=== PATIENT | male | born 1970 | race Native Hawaiian/Other Pacific Islander ===

== ENCOUNTER 2022-09-11 08:59 | Inpatient (IN) | payer OTHER, SELFPAY ==
[2022-09-11] VITALS (45 sets, daily range): BP systolic 144–181; BP diastolic 96–119; PULSE 66–93; RESP 12–21; TEMP 37.2–37.4; O2SAT 92–100; BMI 27.3
--- NOTE | ~2022-09-11 | XR_ITS ---
EXAMINATION: XR chest 2V 09/11/2022 10:05 INDICATION: Weakness and confusion PROCEDURE: 2 view chest COMPARISON: No prior studies for comparison. FINDINGS: The lungs are clear. The cardiomediastinal silhouette is within normal limits. There are no pleural effusions. There is no pneumothorax suspected. IMPRESSION: 1: NO ACUTE CARDIOPULMONARY DISEASE. Reviewed, dictated and finalized at location []
--- NOTE | ~2022-09-11 | MR_ITS ---
MRI of the brain Clinical History: Altered mental status Technique: Axial and sagittal T1-weighted images were acquired. These were followed by axial T2-weigh jamie, diffusion weighted, gradient, and FLAIR images. Thin cut coronal T1-weighted and T2-weighted prem ges and thin cut axial T1-weighted images were acquired through the internal auditory canals. Followi ng intravenous administration of 19 cc MultiHance gadolinium, T1-weighted fat-sat imaging was perform ed through the brain in the axial and coronal planes. Thin cut coronal and axial T1-weighted postcont rast imaging was also performed through the internal auditory canals. Findings: No abnormal signal seen in the brain parenchyma. No acute infarct, intracranial hemorrhage, or mass lesion. Ventricles and subarachnoid spaces are unremarkable. Orbits are unremarkable. Paranasal sinuses and m astoid air cells are clear. Major intracranial flow voids are intact. Sagittal midline structures are intact. No abnormal postcontrast enhancement identified. No abnormal mass lesion seen at the coding compliance auditor y canals or cerebellopontine angle regions. IMPRESSION: No significant abnormality seen. Reviewed, dictated and finalized at location .
--- NOTE | ~2022-09-11 | XR_ITS ---
EXAMINATION: XR lumbar puncture diagnostic DATE: 09/12/2022 14:13 INDICATION: Altered mental status. Concern for neural sarcoidosis. TECHNIQUE: The procedure including the risks and benefits was discussed with the patient. Risks discu ssed included spinal headache, cerebrospinal fluid leak, bleeding, and infection. The patient underst ood the risks and agreed to proceed. A timeout was performed to verify the patient's name, date of , and procedure to be performed. The skin overlying the L4-L5 level was prepped and draped in usual sterile fashion. Subcutaneous 1% lidocaine was used for local anesthesia. A 22 gauge spinal n eedle was advanced under fluoroscopic guidance. The needle was removed and the entry site was cleaned and dressed. There were no immediate complications. A total of 1 fluoroscopic image(s) were obtaine d. The amount of fluoroscopy time used during this procedure was 0.1 minutes. Total DAP was 1.164 mGy cm^2. There were no immediate complications. FINDINGS: Real-time fluoroscopy demonstrates the needle at the L4-L5 level. Opening pressure was 11 c m water. (Normal range is variably defined as 6-20 cm water and up to 25 cm water in obese patients. Pressure >25 cm water is one of the modified Dandy criteria for idiopathic intracranial hypertension) . 12 mL of clear, colorless fluid was collected in 4 tubes. IMPRESSION: 1. Successful fluoro-guided lumbar puncture with normal opening pressure of 11 cm water. Reviewed, dictated and finalized at location A.
--- NOTE | ~2022-09-11 | CT_ITS ---
EXAMINATION: CT BRAIN W/O DATE: 09/11/2022 10:06 INDICATION: Altered mental status TECHNIQUE: Computed tomography (CT) of the head was performed without intravenous contrast. The dose- length product was 681.00 mGy-cm. Automated exposure control and iterative reconstruction technique w ere employed. COMPARISON: No prior studies for comparison. FINDINGS: Normal brain parenchymal volume for age. Normal malone-white differentiation. No acute intrac ranial hemorrhage, infarction, mass or mass effect. No ventriculomegaly or midline shift. Midline sagittal images demonstrate a normal corpus callosum, c raniovertebral junction and sella turcica. Basilar cisterns are patent. Paranasal sinuses and mastoids are pneumatized. No depressed skull fractures. IMPRESSION: 1. No acute intracranial abnormality. Reviewed, dictated and finalized at location []
--- NOTE | 2022-09-11 09:39 | ECG_ITS ---
Measurements Intervals [place] Rate: 73 P: 15 [place]: 121 QRS: 16 QRSD: 88 T: 41 QT: 352 QTc: 389 Interpretive Statements SINUS RHYTHM NORMAL ECG NO PREVIOUS ECG AVAILABLE FOR COMPARISON Electronically Signed On 09-11-2022 15:51:17 CDT by Scotty Sanchez M.D.
[2022-09-11 09:58] LABS: Appearance Urine Clear (Clear); Bilirubin Urine Negative (Negative); Blood Urine Negative (Negative); Color Urine Yellow (Yellow); Glucose Urine UA Negative (Negative); Ketones Urine Negative (Negative); Leukocyte Esterase Ur Negative LEU/UL (Negative); Nitrate Urine Negative (Negative); Protein Urine Negative (Negative); Specific Grav Ur 1.015 (1.001-1.035)
[2022-09-11 10:14] LABS: Amphetamine Screen Urine Negative (Negative); Barbiturate Screen Urine Negative (Negative); Benzodiazepines Screen Urine Negative (Negative); Cannabinoid Screen Urine Positive (Negative); Cocaine Screen Urine Negative (Negative); Methadone Screen Urine Negative (Negative); Opiate Screen Urine Negative (Negative); Phencyclidine Screen Urine Negative (Negative)
[2022-09-11 10:26] LABS: Add Urine Microscopic? NO
[2022-09-11 10:30] LABS: Basophils Percent Auto 0.3 % (0.2-1.2); Eosinophils Percent Auto 0.2 % (0-4.4); Hematocrit 48.8 % (42.0-52.0); Hemoglobin 15.1 g/dL (14.0-18.0); Immature Granulocyte Absolute 0.21 K/mm3 (0.00-0.031); Immature Granulocyte Percent A 2.1 % (0-0.5); Lymphocytes Absolute Auto 1.54 K/mm3 (0.9-3.2); Lymphocytes Percent Auto 15.7 % (18.3-44.2); Mean Corpuscular HGB Conc 30.9 g/dl (32-36); Mean Corpuscular Hemoglobin 24.6 pg (26-34); Mean Corpuscular Volume 79.6 fl (80-100); Mean Platelet Volume 8.7 fl (7.4-10.4); Monocytes Absolute Auto 0.7 K/mm3 (0.1-0.6); Monocytes Percent Auto 6.7 % (2.6-8.5); Neutrophils Absolute Auto 7.4 K/mm3 (1.3-6.7); Platelet Count Result 266 k/mm3 (150-375); Red Blood Count 6.13 M/mm3 (4.6-6.20); Red Cell Distribution Width 21.6 % (11.5-14.5); White Blood Count 9.8 K/mm3 (4.5-10.0)
[2022-09-11 10:38] LABS: Ammonia < 9 umol/L (9-30); Ethanol < 10 mg/dL (<10)
[2022-09-11 10:38] LABS: Lactic Acid Reflex 1.7 mmol/L (0.7-2.0)
[2022-09-11 10:39] LABS: Alanine Aminotransferase 50 U/L (6-50); Albumin Level 4.2 g/dL (3.5-5.1); Alkaline Phosphatase 44 U/L (38-126); Anion Gap 6 mmol/L (8-16); Aspartate Amino Transferase 28 U/L (17-59); Bilirubin,Total 0.7 mg/dL (0.2-1.3); Blood Urea Nitrogen 23 mg/dL (9-20); Calcium 8.7 mg/dL (8.4-10.2); Carbon Dioxide 28 mmol/L (22-30); Chloride 106 mmol/L (98-107); Estimated CRCL calculation 78 ml/min; Estimated Glomerular Filt Rate > 60; Glucose 110 mg/dL (65-110); Potassium 3.7 mmol/L (3.4-5.0); Sodium 140 mmol/L (137-145)
[2022-09-11 10:43] LABS: INR 0.9; Prothrombin Time 12.8 Seconds (11.1-14.7)
[2022-09-11 10:44] LABS: Partial Thromboplastin Time 24.7 SECONDS (22.3-36.8)
--- NOTE | 2022-09-11 14:04 | ED.GENADULT ---
HPI - General Adult General Chief complaint: Altered Mental Status Stated complaint: ?AMS Time Seen by Provider: 09/11/22 09:22 History of Present Illness HPI narrative: Patient is a 52-year-old male who presents ER with concerns for altered mental status. Apparent leg patient was taken to [facility] early in the morning because he was altered and police were concerned that he was driving under the influence of alcohol. Patient was apparently discharged from [place] after evaluation. He was found again wandering near roadway and again confused. The only possessions patient has on him are a hotel room access card, a broken rod hanger, and the remote control. He is unable to tell me what hotel he was staying at. He does report that he is from [facility] but was down here to see his girlfriend who lives in [place]. He denies any knee injury or intoxication. He is alert and oriented to self and year and month. He can give no detailed history of what has occurred this evening. He is unsure why he is also in the possession of a piece of paper with the [place] [employer] phone number. Related Data Allergies Allergy/AdvReac Type Severity Reaction Status Date / Time No Known Allergies Allergy Verified 09/11/22 09:05 Review of Systems Review of Systems: ROS unobtainable: Yes unobtainable due to mental status PMFSH Past Medical History Medical History (Updated 09/11/22 @ 15:25 by Raj Alfaro MD) Kauffman's palsy Sarcoidosis Surgical History Surgical History (Updated 09/11/22 @ 15:25 by Raj Alfaro MD) History of eyelid surgery Exam Narrative: GENERAL: Well-appearing, well-nourished, and in no acute distress. HEAD: Normocephalic, atraumatic. ENT: Mucous membranes moist. CHEST: Clear to auscultation. No respiratory distress. HEART: Regular rate and rhythm. Normal peripheral pulses. ABDOMEN: Soft, nontender, nondistended. EXTREMITIES: Normal range of motion. No edema. SKIN: Warm, dry, no rash. NEURO: Alert and oriented x2. PSYCH: Normal mood and affect. Course Course Emergency Course: Patient provided phone number to his own cell phone that ended up contacting his girlfriend. She is, up to the ER. She reports that patient has had progressive memory impairment over the last 2 months. He was seeing a bread packer related to ptosis in his left eye who had begun to refer him to neurology and for an MRI but he has not been able to complete any of the imaging. Patient has recently been diagnosed with sarcoidosis that is affecting his vision. It is my suspicion that patient has progressive dementia and that is why he has been altered and lost recently. Apparently he has a child who is 8 years old but no other family who could act as a POA. He is adopted and has no biological relatives that are known. He does have a adoptive brother who is currently going through divorce that the girlfriend does not think would be able to act as a surrogate decision-maker. Patient has been accepted by hospitalist service. We will have neurology consulted. Vital Signs Vital signs: Vital Signs Temperature 98.9 F 09/11/22 08:57 Pulse Rate 87 09/11/22 08:57 Respiratory Rate 20 09/11/22 08:57 Blood Pressure 163/97 H 09/11/22 08:57 Pulse Oximetry 97 09/11/22 08:57 Oxygen Delivery Room Air 09/11/22 08:57 Temperature 99.4 F 09/11/22 15:57 Pulse Rate 66 09/11/22 16:32 Respiratory Rate 18 09/11/22 16:32 Blood Pressure 150/99 H 09/11/22 16:32 Pulse Oximetry 98 09/11/22 16:32 Oxygen Delivery Room Air 09/11/22 08:57 Medical Decision Making Vital Signs Vital Signs: Vital Signs Temperature 98.9 F 09/11/22 08:57 Pulse Rate 87 09/11/22 08:57 Respiratory Rate 20 09/11/22 08:57 Blood Pressure 163/97 H 09/11/22 08:57 Pulse Oximetry 97 09/11/22 08:57 Oxygen Delivery Room Air 09/11/22 08:57 Temperature 99.4 F 09/11/22 15:5
--- NOTE | 2022-09-11 17:48 | ADMGEN ---
This patient, Miguel Mari, was admitted to 3 [facility] Surg Room 305-01. Patient/family oriented to hospital policies and general routines including ID bracelet, bed and alarms, visiting hours, pain management, procedures, bathroom and other care routines, personal items, smoking policy, room service/diet, and visiting hours. Information on how to activate the Rapid Response Team has been discussed. Patient/Family are encouraged to report perceived risks to care and to ask questions if they do not understand what they are told or what they should do. Report from Tracy in ER.
--- NOTE | 2022-09-11 20:36 | PM.IMHP ---
H&P: HPI History of Present Illness Date/Time: 09/11/22 20:36 Chief Complaint: Altered mental status Narrative: This is a 52-year-old male patient who was taken to [facility] earlier this morning and was found to be altered and there was some concern that the patient may have been under the influence. Patient was discharged from the hospital after being evaluated. The patient was found wandering near the roadway and again confused. The patient had a hotel he a broken back hanger and a remote control. The patient is from [facility] and reports that he is here to visit his girlfriend. However his girlfriend lives in [facility]. I spoke with his girlfriend and she stated that the patient is very confused. The patient stated that his girlfriend and his child were with him today however the girlfriend tells me she and the patient's child were not with him today. Patient is unsure about the events that occurred today. The patient's toxicology screen was only positive for cannabis. The patient denies using any other illicit drugs. Head CT was read as no acute intracranial abnormality. Chest x-ray was read as no acute cardiopulmonary disease. The patient is being admitted to observation status on the date of service of 09/11/2022. Review of Systems Review of Systems: All systems reviewed & are unremarkable except as noted in HPI and below Constitutional: Constitutional: Reports as per HPI and Reports no additional constitutional complaints Eyes: Eyes: Reports as per HPI and Reports no additional eye complaints ENT: Reports system reviewed and no additional complaints, except as documented and Reports Normal hearing present Cardiovascular: Cardiovascular: Reports no additional cardiovascular complaints Respiratory: Respiratory: Reports no additional respiratory complaints and Reports no additional respiratory complaints Gastrointestinal: Gastrointestinal: Reports as per HPI and Reports no additional gastrointestinal complaints Musculoskeletal: Musculoskeletal: Reports no additional musculoskeletal complaints Integumentary/Breasts: Skin/Breast: Reports system reviewed and no additional complaints, except as docu and Reports as per HPI Neurologic: Reports system reviewed and no additional complaints, except as documented, Reports as per HPI and Reports Normal hearing present Psychiatric: Psychiatric: Reports no additional psychiatric complaints and Reports as per HPI Endocrine: Endocrine: Reports no additional endocrine complaints Hematologic/Lymphatic: Hematologic/Lymphatic: Reports no additional hematologic/lymphatic complaints Allergic/Immunologic: Allergic/Immunologic: Reports no additional allergic/immunologic complaints PMFSH Past Medical History Medical History (Updated 09/12/22 @ 00:25 by Areli Arreola NP) Kauffman's palsy Hypertension Sarcoidosis Surgical History Surgical History History of eyelid surgery Family History Family History (Updated 09/12/22 @ 00:18 by Areli Arreola NP) Unknown No problems noted. 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 The patient has 2 children. The patient is and has a significant other. Code status full code Smoking status: Never smoker Alcohol intake: unknown Substance use: current Substance use type: marijuana Spiritual care concerns: No Meds Home Medications and Allergies Home Medications Medication Instructions Recorded Confirmed Type albuterol sulfate 90 mcg/actuation 1 puff inhalation Q4H PRN sob 09/11/22 09/11/22 History aerosol inhaler budesonide-formoterol HFA 80 2 puff inhalation BID 09/11/22 09/11/22 History mcg-4.5 mcg/actuation aerosol inhaler (Symbicort) dexamethasone 2 mg tablet 2 mg PO
[2022-09-12] VITALS (11 sets, daily range): BP systolic 135–158; BP diastolic 91–108; PULSE 80–107; RESP 16–22; TEMP 36.4–37.3; O2SAT 96–99; BMI 27.3
--- NOTE | 2022-09-12 | ECHO_ITS ---
Patient Info Name: Miguel Mari Age: 52 years : 1970 Gender: Male Ht: 72 in Wt: 201 lbs BSA: 2.17 m2 HR: 87 bpm BP: 155 / 101 mmHg Heart Rhythm: Sinus Rhythm Technical Quality: Good Exam Date: 09/12/2022 9:08 AM Exam Location: [facility] Pulmonary Patient Status: Outpatient Admit Date: 09/11/2022 Staff Ordering Physician: Areli Arreola NP Air Compressor Mechanic: Zelda Shah RDCS Attending Provider: Shaye Pickens DO Referring Physician: Elba STALLINGS; Exam Type: CA echo doppler color flow Study Info Indications - confusion Complete two-dimensional, color flow and Doppler transthoracic echocardiogram is performed. Summary 1. Complete two-dimensional, color flow and Doppler transthoracic echocardiogram is performed. 2. Left ventricular chamber dimension is normal. 3. Left ventricular systolic function is hyperdynamic, estimated at >70%. 4. There is mildly increased left ventricular wall thickness. 5. The left ventricular diastolic function is grade I diastolic dysfunction. 6. Right ventricular systolic function is normal. 7. There is trace mitral valve regurgitation. 8. There is trace tricuspid valve regurgitation. 9. There is trace pulmonic regurgitation. Left Ventricle Left ventricular chamber dimension is normal. Left ventricular systolic function is hyperdynamic, estimated at >70%. There is mildly increased left ventricular wall thickness. The left ventricular diastolic function is grade I diastolic dysfunction. Right Ventricle Right ventricular chamber dimension is normal. Right ventricular systolic function is normal. Left Atria Left atrial chamber dimension is normal. Right Atria Right atrial chamber dimension is normal. Atrial Septum Intact interatrial septum visualized by color flow imaging. Aortic Valve The aortic valve is trileaflet. There is mild aortic valve sclerosis. There is no aortic valve stenosis. There is no aortic valve regurgitation. Pulmonic Valve The pulmonic valve is not well visualized. There is trace pulmonic regurgitation. Mitral Valve There is no mitral valve stenosis. There is trace mitral valve regurgitation. Tricuspid Valve There is trace tricuspid valve regurgitation. Pericardium/Pleural The pericardium appears epicardial fat pad. There is trivial pericardial effusion. Inferior Vena Cava Normal inferior vena cava with >50% collapse upon inspiration consistent with normal right atrial pressure, 3 mmHg. Aorta The aortic root size at the sinus of Valsalva is normal. Left Ventricular Outflow Tract Name Value Normal LVOT Doppler LVOT Peak Gradient 5 mmHg LVOT Mean Gradient 2 mmHg LVOT VTI 20 cm LVOT VTI/AV VTI Ratio 0.8 Pulmonic Valve Name Value Normal RVOT Doppler RVOT Peak Gradient 3 mmHg PV Doppler PV Peak Gradient 5 mmHg Mitral Valve -----
[2022-09-12 06:17] LABS: Basophils Absolute Auto 0.1 K/mm3 (0.0-0.1); Basophils Percent Auto 0.7 % (0.2-1.2); Eosinophils Percent Auto 0.5 % (0-4.4); Hematocrit 51.4 % (42.0-52.0); Hemoglobin 15.9 g/dL (14.0-18.0); Immature Granulocyte Absolute 0.19 K/mm3 (0.00-0.031); Immature Granulocyte Percent A 2.6 % (0-0.5); Lymphocytes Absolute Auto 1.29 K/mm3 (0.9-3.2); Lymphocytes Percent Auto 17.6 % (18.3-44.2); Mean Corpuscular HGB Conc 30.9 g/dl (32-36); Mean Corpuscular Hemoglobin 24.8 pg (26-34); Mean Corpuscular Volume 80.2 fl (80-100); Mean Platelet Volume 8.5 fl (7.4-10.4); Monocytes Absolute Auto 0.5 K/mm3 (0.1-0.6); Monocytes Percent Auto 6.7 % (2.6-8.5); Neutrophils Absolute Auto 5.3 K/mm3 (1.3-6.7); Neutrophils Percent Auto 71.9 % (45.5-73.1); Platelet Count Result 232 k/mm3 (150-375); Red Blood Count 6.41 M/mm3 (4.6-6.20); Red Cell Distribution Width 21.8 % (11.5-14.5); White Blood Count 7.3 K/mm3 (4.5-10.0)
[2022-09-12 06:32] LABS: Alanine Aminotransferase 50 U/L (6-50); Albumin Level 4.1 g/dL (3.5-5.1); Alkaline Phosphatase 51 U/L (38-126); Anion Gap 7 mmol/L (8-16); Aspartate Amino Transferase 25 U/L (17-59); Blood Urea Nitrogen 19 mg/dL (9-20); Calcium 8.9 mg/dL (8.4-10.2); Carbon Dioxide 30 mmol/L (22-30); Chloride 102 mmol/L (98-107); Estimated CRCL calculation 72 ml/min; Estimated Glomerular Filt Rate > 60; Glucose 98 mg/dL (65-110); Magnesium 2.5 mg/dL (1.6-2.3); Potassium 3.7 mmol/L (3.4-5.0); Sodium 139 mmol/L (137-145)
--- NOTE | 2022-09-12 09:12 | WPDNEURCNPN ---
Assessment and Plan Assessment and plan (1) Altered mental status: Code(s): R41.82 - Altered mental status, unspecified Status: Acute (2) Sarcoidosis: Code(s): D86.9 - Sarcoidosis, unspecified Status: Acute (3) Steroid long-term use: Status: Acute (4) Hypertension: Code(s): I10 - Essential (primary) hypertension Status: Acute Plan Miguel Mari is a 52 year old male with a history of Kauffman's palsy and sarcoidosis presenting due to altered mental status. Concern is high for possible neurosarcoidosis. MRI brain with and without contrast was unrevealing. Will need CSF analysis for further evaluation. - Lumbar puncture with CSF studies including viral studes, CSF OMNICA, and RT QUIC - Once LP is done, will treat empirically with high dose steroids -- 500mg BID Solumedrol x 3 days, followed by 1mg/kg/day prednisone for 2-4 weeks, depending on response at that time - Will continue to monitor mental status Consult date: 09/12/22 Reason for consult: Altered mental status HPI: Miguel Mari is a 52 year old male with a history of Kauffman's palsy and sarcoidosis presenting due to altered mental status. Patient was initially admitted to [facility] just prior to admission to [place]. At that time there was concern that patient may have been under the influence. He was discharged but found wandering near the highway confused. His only belongings were a remote control and broken spinning frame changer. He was reportedly staying at a hotel but it is unclear which one. Patient reported that he was visiting his girlfriend in [facility]. Per girlfriend, patient has had progressive decline in his mental status for the past two months. He was taken to [place] ED where he was alert and oriented to self, year, and month. His CT head was negative for acute abnormalities. UDS was positive for cannabinoids. Alcohol level was negative. Patient denied any other illicit drugs. Unclear where patient was diagnosed with sarcoidosis as there is no additional information in his chart other than the current admission. Patient's brothers (biological coursins) and girlfriend at [facility]. His girlfriend reports that he has been having some forgetfulness that started about 6 months ago. Over the past two months, things have considerably worsened. He was only recently diagnosed with sarcoidosis by a Rooter Operator. He had not had any neuroimaging done yet. 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 He is not around any livestock or cattle. They do not notice any abnormal jerking movement such as myoclonus. He has a history of R Kauffman's palsy with reconstructive surgery on the R eyelid. Review of Systems Constitutional: Constitutional: Denies chills, Denies fever(s) and Reports weight loss Eyes: Eyes: Denies diplopia and Denies loss of vision ENT: Denies dizziness, Denies hearing loss and Denies tinnitus Cardiovascular: Cardiovascular: Denies chest pain, Denies syncope and Denies dyspnea Respiratory: Respiratory: Denies cough, Denies dyspnea and Denies wheezing Gastrointestinal: Gastrointestinal: Denies abdominal pain, Denies change in bowel habits and Denies vomiting Genitourinary: Genitourinary: Denies urinary incontinence Musculoskeletal: Musculoskeletal: Reports arthralgias and Denies joint swelling Integumentary/Breasts: Skin/Breast: Denies new lesions and Denies rash Neurologic: Reports as per HPI, Reports confusion, Denies dizziness, Denies syncope and Denies loss of vision Psychiatric: Psychiatric: Denies anxiety, Reports confusion and Denies depression Endocrine: Endocrine: Denies cold intolerance and Denies heat intolerance Hematologic/Lymphatic: Hematologic/Lymphatic: Denies easy bleeding and Denies easy bruising Allergic/Immunologic: Allergic/Immunologic: Denies no additional aller
[2022-09-12] MEDS: DEXAMETHASONE 2 MG TABLET PO (10:13)
[2022-09-12] MEDS: lisinopriL 10 MG TABLET PO (10:13)
[2022-09-12 14:42] LABS: Appearance CSF Clear (Clear); CSF source CSF; Color CSF Colorless (Colorless)
[2022-09-12 14:43] LABS: Lymphocytes CSF 47 % (40-80); Monocytes CSF 53 % (15-45)
[2022-09-12 14:45] LABS: Nucleated Cell CSF < 3 /uL (0-5); Red Blood Cell CSF < 2000 (0-2)
--- NOTE | 2022-09-12 15:07 | WPDPN ---
Progress Note: A&P Assessment and Plan (1) Altered mental status: Code(s): R41.82 - Altered mental status, unspecified Status: Acute Assessment and Plan: Head CT was read as 1. No acute intracranial abnormality. An echo has been ordered Neurology has been consult MRI of the brain has been ordered 09/12/2022 interval history: Patient with history of sarcoidosis presented with confusion CT scan of the head and MRI of the brain are negative for any acute injury, patient was seen by Neurology and suspect the patient may have neuro sarcoidosis, LP was done and pending, neurologist will start on high-dose steroid and will monitor, patient states is feeling little better compared to when he arrived, denies any fevers will continue to monitor. (2) Hypertension: Code(s): I10 - Essential (primary) hypertension Status: Acute Assessment and Plan: Continue lisinopril (3) Steroid long-term use: Status: Acute Assessment and Plan: Unsure if this is due to the sarcoid Subjective Date/time seen: 09/12/22 15:07 Interval history: Chief Complaint: Altered mental status HPINarrative: This is a 52-year-old male patient who was taken to [facility] earlier this morning and was found to be altered and there was some concern that the patient may have been under the influence.? Patient was discharged from the hospital after being evaluated.? The patient was found wandering near the roadway and again confused.? The patient had a hotel he a broken mold insert changer and a remote control.? The patient is from [facility] and reports that he is here to visit his girlfriend.? However his girlfriend lives in [facility].? I spoke with his girlfriend and she stated that the patient is very confused.? The patient stated that his girlfriend and his child were with him today however the girlfriend tells me she and the patient's child were not with him today.? Patient is unsure about the events that occurred today.? The patient's toxicology screen was only positive for cannabis.? The patient denies using any other illicit drugs.? Head CT was read as no acute intracranial abnormality.? Chest x-ray was read as no acute cardiopulmonary disease.? 09/12/2022 interval history: Patient with history of sarcoidosis presented with confusion CT scan of the head and MRI of the brain are negative for any acute injury, patient was seen by Neurology and suspect the patient may have neuro sarcoidosis, LP was done and pending, neurologist will start on high-dose steroid and will monitor, patient states is feeling little better compared to when he arrived, denies any fevers will continue to monitor. Review of Systems Review of Systems: All systems reviewed & are unremarkable except as noted in HPI and below Exam Narrative: Patient is comfortable, NAD HEENT: eyes are clear and none icteric LUNGS: Normal respiratory efforts ABD: Not distended Lower extremities: no edema SKIN: nonjaundiced Neuro: grossly intact. Objective Data Vital Signs Vital Signs: Vital Signs - 24 hr 09/11/22 15:15 09/11/22 15:30 09/11/22 15:57 Temperature 99.4 F Pulse Rate 83 83 78 Respiratory Rate 16 Blood Pressure 173/103 H Pulse Oximetry 100 98 Oxygen Delivery 09/11/22 16:22 09/11/22 16:32 09/11/22 17:41 Temperature 99.0 F Pulse Rate 77 66 81 Respiratory Rate 18 18 18 Blood Pressure 166/104 H 150/99 H 151/100 H Pulse Oximetry 97 98 98 Oxygen Delivery 09/11/22 18:30 09/11/22 20:00 09/11/22 22:00 Temperature 99.4 F Pulse Rate 81 86 Respiratory Rate 18 18 Blood Pressure 145/96 H 160/97 H Pulse Oximetry 98 100 Oxygen Delivery Room Air 09/11/22 20:00 09/12/22 00:00 09/12/22 04:00 Temperature Pulse Rate 73 100 81 Respiratory Rate Blood Pressure Pulse Oximetry Oxygen Delivery 09/12/22 06:00 09/12/22 08:00 09/12/22 09:54 Temperature 97.6 F Pulse
[2022-09-12 15:10] LABS: Glucose CSF 53 mg/dL (40-70); Total Protein CSF 78 mg/dL (12-60)
[2022-09-12] MEDS: ALBUTEROL SULFATE (*SP) AEROSOL 1 PUFF INHALATION (23:52)
[2022-09-13] VITALS (10 sets, daily range): BP systolic 136–158; BP diastolic 97–100; PULSE 79–97; RESP 14–18; TEMP 37–37.6; O2SAT 97–100
[2022-09-13] MEDS: lisinopriL 10 MG TABLET PO (07:59)
[2022-09-13] MEDS: DEXAMETHASONE 2 MG TABLET PO (07:59)
--- NOTE | 2022-09-13 11:55 | WPDNEUROPN ---
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 Concern is high for possible neurosarcoidosis. MRI brain with and without contrast was unrevealing. CSF showed no pleocytosis but did show monocytic predominance and elevated protein level, which may be suggestive of neurosarcoidosis. Patient would benefit from high dose steroids while admitted. I do not think he is safe for discharge. If symptoms do not improve from steroids, he may need to be transferred to a tertiary care center. - Start Solumedrol 1000mg x 3 days, followed by 1mg/kg/day prednisone for 2-4 weeks, depending on response at that time - Will continue to monitor mental status Subjective Date/time seen: 09/13/22 11:55 Interval history: Miguel Mari is a 52 year old male with a history of Kauffman's palsy and sarcoidosis presenting due to altered mental status. Patient was initially admitted to [facility] just prior to admission to [place]. At that time there was concern that patient may have been under the influence. He was discharged but [place]. His only belongings were a remote control and broken roll changer. He was reportedly staying at a hotel but it is unclear which one. Patient reported that he was visiting his girlfriend in [facility]. Per girlfriend, patient has had progressive decline in his mental status for the past two months. He was taken to [place] ED where he was alert and oriented to self, year, and month. His CT head was negative for acute abnormalities. UDS was positive for cannabinoids. Alcohol level was negative. Patient denied any other illicit drugs. Unclear where patient was diagnosed with sarcoidosis as there is no additional information in his chart other than the current admission. Patient's brothers (biological cousins) and girlfriend at bedside. His girlfriend reports that he has been having some forgetfulness that started about 6 months ago. Over the past two months, things have considerably worsened. He was only recently diagnosed with sarcoidosis by a Line Rider. He had not had any neuroimaging done yet. 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 He is not around any livestock or cattle. They do not notice any abnormal jerking movement such as myoclonus. He has a history of R Kauffman's palsy with reconstructive surgery on the R eyelid. Patient had LP and CSF analysis. Cell count is normal but with monocytic predominance. Protein level is elevated somewhat to 78. Gram stain and culture is negative on prelim. I discussed with patient that he will need high dose steroids for treatment of possible neurosarcoidosis, but he is wanting to leave because his car is impounded. He did mention that he would like to designate the mother of his children (Joann Abdul) as MARIA M. He mentioned this to the director case management as well. I discussed my concerns with patient's girlfriend Greg updated her on the plan moving forward regarding the IV steroids. Review of Systems Constitutional: Constitutional: Denies chills, Denies fever(s) and Reports weight loss Eyes: Eyes: Denies diplopia and Denies loss of vision ENT: Denies dizziness, Denies hearing loss and Denies tinnitus Cardiovascular: Cardiovascular: Denies chest pain, Denies syncope and Denies dyspnea Respiratory: Respiratory: Denies cough, Denies dyspnea and Denies wheezing Gastrointestinal: Gastrointestinal: Denies abdominal pain, Denies change in bowel habits and Denies vomiting Genitourinary: Genitourinary: Denies urinary
--- NOTE | 2022-09-13 12:41 | WPDPN ---
Progress Note: A&P Assessment and Plan (1) Altered mental status: Code(s): R41.82 - Altered mental status, unspecified Status: Acute Assessment and Plan: Head CT was read as 1. No acute intracranial abnormality. An echo has been ordered Neurology has been consult MRI of the brain has been ordered 09/13/2022 interval history: Patient with history of sarcoidosis presented with confusion CT scan of the head and MRI of the brain are negative for any acute injury, patient was seen by Neurology and suspect the patient may have neuro sarcoidosis, LP was done did not show any infection, however which suggest patient has neurosarcodiosis, neurologist started on high-dose methylprednisone 1000mg TID for 3 days thereafter 1mg/kg/day for 2 to 4 weeks, if no improvement patient need to be transferred to tertiary care, and will monitor, patient states is feeling little better compared to when he arrived, denies any fevers will continue to monitor. (2) Hypertension: Code(s): I10 - Essential (primary) hypertension Status: Acute Assessment and Plan: Continue lisinopril (3) Steroid long-term use: Status: Acute Assessment and Plan: Unsure if this is due to the sarcoid Subjective Date/time seen: 09/13/22 12:41 Interval history: Head CT was read as 1. No acute intracranial abnormality. An echo has been ordered Neurology has been consult MRI of the brain has been ordered 09/13/2022 interval history: Patient with history of sarcoidosis presented with confusion CT scan of the head and MRI of the brain are negative for any acute injury, patient was seen by Neurology and suspect the patient may have neuro sarcoidosis, LP was done did not show any infection, however which suggest patient has neurosarcodiosis, neurologist started on high-dose methylprednisone 1000mg TID for 3 days thereafter 1mg/kg/day for 2 to 4 weeks, if no improvement patient need to be transferred to tertiary care, and will monitor, patient states is feeling little better compared to when he arrived, denies any fevers will continue to monitor. Review of Systems Review of Systems: All systems reviewed & are unremarkable except as noted in HPI and below Exam Narrative: Patient is comfortable, NAD HEENT: eyes are clear and none icteric LUNGS: Normal respiratory efforts ABD: Not distended Lower extremities: no edema SKIN: nonjaundiced Neuro: grossly intact. Objective Data Vital Signs Vital Signs: Vital Signs - 24 hr 09/12/22 14:00 09/12/22 16:00 09/12/22 21:17 Temperature 98.7 F 99.1 F Pulse Rate 97 95 80 Respiratory Rate 22 H 20 Blood Pressure 143/96 H 135/91 H Pulse Oximetry 96 99 Oxygen Delivery 09/12/22 23:53 09/12/22 20:00 09/13/22 00:00 Temperature Pulse Rate 86 98 87 Respiratory Rate 20 Blood Pressure Pulse Oximetry Oxygen Delivery 09/13/22 04:00 09/13/22 06:00 09/13/22 08:00 Temperature 99.7 F H Pulse Rate 97 93 Respiratory Rate 18 Blood Pressure 158/100 H Pulse Oximetry 100 Oxygen Delivery Room Air Intake/Output Intake/Output: Intake & Output 09/10/22 09/11/22 09/12/22 09/13/22 23:59 23:59 23:59 23:59 Intake Total 1030 750 Output Total 440 500 Balance -440 1030 250 Meds/Results Medications: Active Medications Generic Name Dose Route Start Last Admin Trade Name Freq PRN Reason Stop Dose Admin Acetaminophen 650 mg 09/11/22 15:29 Acetaminophen 325 Mg Tablet PO Q4H PRN Mild Pain (1-3) or Fever Hydrocodone Bitart/Acetaminophen 1 tab 09/11/22 15:29 Hydrocodone/Acetaminophen (*Crx) 5-325 Mg Tablet PO Q4H PRN Pain Rated 4-6 Albuterol 1 puff 09/12/22 00:17 09/12/22 23:52 Albuterol Sulfate (*Sp) Aerosol 1 Puff INHALATION 1 puff Q4H PRN Administration Shortness Of Breath Methylprednisolone Sodium 116 mls @ 200 mls/hr 09/13/22 13:00 Succinate 1,000 mg/ Dextrose IVPB 06
[2022-09-13 12:54] LABS: Hematocrit 53.6 % (42.0-52.0); Hemoglobin 16.5 g/dL (14.0-18.0); Mean Corpuscular HGB Conc 30.8 g/dl (32-36); Mean Corpuscular Hemoglobin 24.7 pg (26-34); Mean Corpuscular Volume 80.1 fl (80-100); Mean Platelet Volume 8.3 fl (7.4-10.4); Platelet Count Result 220 k/mm3 (150-375); Red Blood Count 6.69 M/mm3 (4.6-6.20); Red Cell Distribution Width 21.8 % (11.5-14.5); White Blood Count 8.6 K/mm3 (4.5-10.0)
[2022-09-13] MEDS: methylPREDNISolone SOD SUCC 1,000 MG in DEXTROSE 5% 100 ML 200 MG IVPB (12:57)
[2022-09-13 13:03] LABS: Anion Gap 8 mmol/L (8-16); Blood Urea Nitrogen 25 mg/dL (9-20); Calcium 8.9 mg/dL (8.4-10.2); Carbon Dioxide 34 mmol/L (22-30); Chloride 98 mmol/L (98-107); Estimated CRCL calculation 67 ml/min; Estimated Glomerular Filt Rate 58; Glucose 152 mg/dL (65-110); Magnesium 2.8 mg/dL (1.6-2.3); Sodium 140 mmol/L (137-145)
[2022-09-13] MEDS: FLUTICASONE/SALMETEROL 45-21 MCG INHALER 1 PUFF 2 PUFF INHALATION (19:48)
[2022-09-14] VITALS (11 sets, daily range): BP systolic 140–149; BP diastolic 86–93; PULSE 76–102; RESP 14–16; TEMP 36.9–37.4; O2SAT 95–100
[2022-09-14 06:31] LABS: Hematocrit 51.9 % (42.0-52.0); Mean Corpuscular HGB Conc 30.8 g/dl (32-36); Mean Corpuscular Hemoglobin 24.9 pg (26-34); Mean Corpuscular Volume 80.8 fl (80-100); Mean Platelet Volume 8.6 fl (7.4-10.4); Platelet Count Result 235 k/mm3 (150-375); Red Blood Count 6.42 M/mm3 (4.6-6.20); Red Cell Distribution Width 22.1 % (11.5-14.5); White Blood Count 11.3 K/mm3 (4.5-10.0)
[2022-09-14 06:51] LABS: Anion Gap 8 mmol/L (8-16); Blood Urea Nitrogen 29 mg/dL (9-20); Calcium 9.2 mg/dL (8.4-10.2); Carbon Dioxide 32 mmol/L (22-30); Chloride 100 mmol/L (98-107); Estimated CRCL calculation 67 ml/min; Estimated Glomerular Filt Rate 58; Glucose 153 mg/dL (65-110); Magnesium 2.8 mg/dL (1.6-2.3); Potassium 4.3 mmol/L (3.4-5.0); Sodium 140 mmol/L (137-145)
[2022-09-14] MEDS: FLUTICASONE/SALMETEROL 45-21 MCG INHALER 1 PUFF 2 PUFF INHALATION ×2 (07:53→20:26)
--- NOTE | 2022-09-14 09:41 | WPDNEUROPN ---
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 Concern is high for possible neurosarcoidosis. MRI brain with and without contrast was unrevealing. CSF showed no pleocytosis but did show monocytic predominance and elevated protein level, which may be suggestive of neurosarcoidosis. Patient started on high dose steroids. - Continue Solumedrol 1000mg/day x 3 days, followed by 1mg/kg/day prednisone for 2-4 weeks - Will continue to monitor mental status Subjective Date/time seen: 09/14/22 09:41 Interval history: Miguel Mari is a 52 year old male with a history of Kauffman's palsy and sarcoidosis presenting due to altered mental status. Patient was initially admitted to [facility] just prior to admission to [place]. At that time there was concern that patient may have been under the influence. He was discharged [place]. His only belongings were a remote control and broken tire changer. He was reportedly staying at a hotel but it is unclear which one. Patient reported that he was visiting his girlfriend in [facility]. Per girlfriend, patient has had progressive decline in his mental status for the past two months. He was taken to [place] ED where he was alert and oriented to self, year, and month. His CT head was negative for acute abnormalities. UDS was positive for cannabinoids. Alcohol level was negative. Patient denied any other illicit drugs. Unclear where patient was diagnosed with sarcoidosis as there is no additional information in his chart other than the current admission. Patient's brothers (biological cousins) and girlfriend at bedside. His girlfriend reports that he has been having some forgetfulness that started about 6 months ago. Over the past two months, things have considerably worsened. He was only recently diagnosed with sarcoidosis by a Interior Design Coordinator. He had not had any neuroimaging done yet. 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 He is not around any livestock or cattle. They do not notice any abnormal jerking movement such as myoclonus. He has a history of R Kauffman's palsy with reconstructive surgery on the R eyelid. Patient had LP and CSF analysis. Cell count is normal but with monocytic predominance. Protein level is elevated somewhat to 78. Gram stain and culture is negative on prelim. I discussed with patient that he will need high dose steroids for treatment of possible neurosarcoidosis, but he is wanting to leave because his car is impounded. He did mention that he would like to designate the mother of his children (Joann Abdul) as MARIA M. He mentioned this to the case work aide as well. I discussed my concerns with patient's girlfriend Greg updated her on the plan moving forward regarding the IV steroids. Interval history: Patient reports feeling better today. He denies any concerns or complaints other than wanting to go home. Review of Systems Constitutional: Constitutional: Denies chills, Denies fever(s) and Reports weight loss Eyes: Eyes: Denies diplopia and Denies loss of vision ENT: Denies dizziness, Denies hearing loss and Denies tinnitus Cardiovascular: Cardiovascular: Denies chest pain, Denies syncope and Denies dyspnea Respiratory: Respiratory: Denies cough, Denies dyspnea and Denies wheezing Gastrointestinal: Gastrointestinal: Denies abdominal pain, Denies change in bowel habits and Denies vomiting Genitourinary: Genitourinary: Denies urinary incontinence Musculoskeletal: Musculoskeletal: Reports arthralgias
[2022-09-14] MEDS: methylPREDNISolone SOD SUCC 1,000 MG in DEXTROSE 5% 100 ML 200 MG IVPB (09:44)
[2022-09-14] MEDS: lisinopriL 10 MG TABLET PO (09:45)
[2022-09-14] MEDS: PANTOPRAZOLE 40 MG TABLET PO (09:45)
--- NOTE | 2022-09-14 12:19 | WPDPN ---
Progress Note: A&P Assessment and Plan (1) Altered mental status: Code(s): R41.82 - Altered mental status, unspecified Status: Acute Assessment and Plan: Head CT was read as 1. No acute intracranial abnormality. An echo has been ordered Neurology has been consult MRI of the brain has been ordered 09/14/2022 interval history: Patient with history of sarcoidosis presented with confusion and viusal problems, CT scan of the head and MRI of the brain are negative for any acute injury, patient was seen by Neurology and suspect the patient may have neuro sarcoidosis, LP was done did not show any infection, however which suggest patient has neurosarcodiosis, on 09/13 neurologist started on high-dose methylprednisone 1000mg TID for 3 days 2/3 thereafter 1mg/kg/day for 2 to 4 weeks, if no improvement patient need to be transferred to tertiary care, and will monitor, patient states is feeling little better compared to when he arrived, however still having problems seeing, denies any fevers will continue to monitor mental status. (2) Hypertension: Code(s): I10 - Essential (primary) hypertension Status: Acute Assessment and Plan: Continue lisinopril (3) Steroid long-term use: Status: Acute Assessment and Plan: Unsure if this is due to the sarcoid Subjective Date/time seen: 09/14/22 12:19 Interval history: Head CT was read as 1. No acute intracranial abnormality. An echo has been ordered Neurology has been consult MRI of the brain has been ordered 09/14/2022 interval history: Patient with history of sarcoidosis presented with confusion and viusal problems, CT scan of the head and MRI of the brain are negative for any acute injury, patient was seen by Neurology and suspect the patient may have neuro sarcoidosis, LP was done did not show any infection, however which suggest patient has neurosarcodiosis, on 09/13 neurologist started on high-dose methylprednisone 1000mg TID for 3 days 2/3 thereafter 1mg/kg/day for 2 to 4 weeks, if no improvement patient need to be transferred to tertiary care, and will monitor, patient states is feeling little better compared to when he arrived, however still having problems seeing, denies any fevers will continue to monitor mental status. Exam Narrative: Patient is comfortable, NAD HEENT: eyes are clear and none icteric LUNGS: Normal respiratory efforts ABD: Not distended Lower extremities: no edema SKIN: nonjaundiced Neuro: grossly intact. Objective Data Vital Signs Vital Signs: Vital Signs - 24 hr 09/13/22 14:00 09/13/22 16:00 09/13/22 19:49 Temperature 98.6 F Pulse Rate 94 95 79 Respiratory Rate 18 18 Blood Pressure 139/99 H Pulse Oximetry 97 Oxygen Delivery 09/13/22 21:47 09/13/22 20:00 09/13/22 20:00 Temperature 98.8 F Pulse Rate 90 90 91 Respiratory Rate 14 14 Blood Pressure 136/97 H Pulse Oximetry 97 97 Oxygen Delivery Room Air 09/14/22 00:00 09/14/22 04:00 09/14/22 05:44 Temperature 98.6 F Pulse Rate 78 78 100 Respiratory Rate 14 Blood Pressure 143/93 H Pulse Oximetry 100 Oxygen Delivery 09/14/22 07:59 Temperature Pulse Rate Respiratory Rate Blood Pressure Pulse Oximetry 95 Oxygen Delivery Room Air Intake/Output Intake/Output: Intake & Output 09/11/22 09/12/22 09/13/22 09/14/22 23:59 23:59 23:59 23:59 Intake Total 1030 1116 616 Output Total 440 500 400 Balance -440 1030 616 216 Meds/Results Medications: Active Medications Generic Name Dose Route Start Last Admin Trade Name Freq PRN Reason Stop Dose Admin Acetaminophen 650 mg 09/11/22 15:29 Acetaminophen 325 Mg Tablet PO Q4H PRN Mild Pain (1-3) or Fever Hydrocodone Bitart/Acetaminophen 1 tab 09/11/22 15:29 Hydrocodone/Acetaminophen (*Crx) 5-325 Mg Tablet PO Q4H PRN Pain Rated 4-6 Albuterol 1 puff 09/12/22 00:17 09/12/22 23:52 Albuterol Sulfate (*Sp)
[2022-09-15] VITALS (8 sets, daily range): BP systolic 142–161; BP diastolic 74–95; PULSE 66–99; RESP 14–20; TEMP 36.6–36.9; O2SAT 97–100
[2022-09-15] MEDS: WITCH HAZEL 40 PADS 1 PAD (05:59)
[2022-09-15 06:21] LABS: Hematocrit 49.6 % (42.0-52.0); Hemoglobin 15.1 g/dL (14.0-18.0); Mean Corpuscular HGB Conc 30.4 g/dl (32-36); Mean Corpuscular Hemoglobin 24.8 pg (26-34); Mean Corpuscular Volume 81.3 fl (80-100); Platelet Count Result 261 k/mm3 (150-375); Red Cell Distribution Width 21.7 % (11.5-14.5); White Blood Count 17.4 K/mm3 (4.5-10.0)
[2022-09-15 06:35] LABS: Anion Gap 8 mmol/L (8-16); Blood Urea Nitrogen 37 mg/dL (9-20); Calcium 9.2 mg/dL (8.4-10.2); Carbon Dioxide 31 mmol/L (22-30); Chloride 101 mmol/L (98-107); Estimated CRCL calculation 62 ml/min; Estimated Glomerular Filt Rate 54; Glucose 138 mg/dL (65-110); Magnesium 2.7 mg/dL (1.6-2.3); Potassium 4.1 mmol/L (3.4-5.0); Sodium 140 mmol/L (137-145)
[2022-09-15] MEDS: methylPREDNISolone SOD SUCC 1,000 MG in DEXTROSE 5% 100 ML 200 MG IVPB (08:05)
[2022-09-15] MEDS: lisinopriL 10 MG TABLET PO (08:06)
[2022-09-15] MEDS: PANTOPRAZOLE 40 MG TABLET PO (08:07)
[2022-09-15] MEDS: FLUTICASONE/SALMETEROL 45-21 MCG INHALER 1 PUFF 2 PUFF INHALATION ×2 (08:24→20:37)
[2022-09-15 11:20] LABS: Angiotensi Converting Enzy CSF 7 U/L (<=15)
--- NOTE | 2022-09-15 11:53 | WPDNEUROPN ---
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 Concern is high for possible neurosarcoidosis. MRI brain with and without contrast was unrevealing. CSF showed no pleocytosis but did show monocytic predominance and elevated protein level, which may be suggestive of neurosarcoidosis. Patient started on high dose steroids -- he has completed 3 days. - Ok to transition Solumedrol to Prednisone 1mg/kg/day prednisone for 2 weeks followed by steroid taper Subjective Date/time seen: 09/15/22 11:53 Interval history: Miguel Mari is a 52 year old male with a history of Kauffman's palsy and sarcoidosis presenting due to altered mental status. Patient was initially admitted to [facility] just prior to admission to [place]. At that time there was concern that patient may have been under the influence. He was discharged but [place]. 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 He was reportedly staying at a hotel but it is unclear which one. Patient reported that he was visiting his girlfriend in [facility]. Per girlfriend, patient has had progressive decline in his mental status for the past two months. He was taken to [place] ED where he was alert and oriented to self, year, and month. His CT head was negative for acute abnormalities. UDS was positive for cannabinoids. Alcohol level was negative. Patient denied any other illicit drugs. Unclear where patient was diagnosed with sarcoidosis as there is no additional information in his chart other than the current admission. Patient's brothers (biological cousins) and girlfriend at bedside. His girlfriend reports that he has been having some forgetfulness that started about 6 months ago. Over the past two months, things have considerably worsened. He was only recently diagnosed with sarcoidosis by a Account Manager Relief. He had not had any neuroimaging done yet. 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 He is not around any livestock or cattle. They do not notice any abnormal jerking movement such as myoclonus. He has a history of R Kauffman's palsy with reconstructive surgery on the R eyelid. Patient had LP and CSF analysis. Cell count is normal but with monocytic predominance. Protein level is elevated somewhat to 78. Gram stain and culture is negative on prelim. I discussed with patient that he will need high dose steroids for treatment of possible neurosarcoidosis, but he is wanting to leave because his car is impounded. He did mention that he would like to designate the mother of his children (Joann Abdul) as MARIA M. He mentioned this to the director case as well. I discussed my concerns with patient's girlfriend Greg updated her on the plan moving forward regarding the IV steroids. Interval history: Patient reports feeling better today. He denies any concerns or complaints other than wanting to go home. Review of Systems Constitutional: Constitutional: Denies chills, Denies fever(s) and Reports weight loss Eyes: Eyes: Denies diplopia and Denies loss of vision ENT: Denies dizziness, Denies hearing loss and Denies tinnitus Cardiovascular: Cardiovascular: Denies chest pain, Denies syncope and Denies dyspnea Respiratory: Respiratory: Denies cough, Denies dyspnea and Denies wheezing Gastrointestinal: Gastrointestinal: Denies abdominal pain, Denies change in bowel habits and Denies vomiting Genitourinary: Genitourinary: Denies urinary incontinence Musculoskeletal: Musculoskeletal: Reports arthralgias
[2022-09-16 00:53] VITALS: O2SAT 98
[2022-09-16 06:00] VITALS: BP 154/93; PULSE 69; RESP 18; TEMP 36.6; O2SAT 100
[2022-09-16 07:07] LABS: Hematocrit 43.2 % (42.0-52.0); Hemoglobin 13.3 g/dL (14.0-18.0); Mean Corpuscular HGB Conc 30.8 g/dl (32-36); Mean Corpuscular Hemoglobin 24.7 pg (26-34); Mean Corpuscular Volume 80.3 fl (80-100); Mean Platelet Volume 9.3 fl (7.4-10.4); Platelet Count Result 203 k/mm3 (150-375); Red Blood Count 5.38 M/mm3 (4.6-6.20); Red Cell Distribution Width 21.1 % (11.5-14.5); White Blood Count 11.6 K/mm3 (4.5-10.0)
[2022-09-16 07:24] LABS: Anion Gap 5 mmol/L (8-16); Blood Urea Nitrogen 25 mg/dL (9-20); Calcium 8.6 mg/dL (8.4-10.2); Carbon Dioxide 31 mmol/L (22-30); Chloride 102 mmol/L (98-107); Estimated CRCL calculation 86 ml/min; Estimated Glomerular Filt Rate > 60; Glucose 137 mg/dL (65-110); Magnesium 2.5 mg/dL (1.6-2.3); Potassium 3.6 mmol/L (3.4-5.0); Sodium 138 mmol/L (137-145)
[2022-09-16] MEDS: FLUTICASONE/SALMETEROL 45-21 MCG INHALER 1 PUFF 2 PUFF INHALATION (08:14)
[2022-09-16 08:17] VITALS: PULSE 108; O2SAT 94
[2022-09-16] MEDS: predniSONE 20 MG TABLET 80 MG PO (08:21)
[2022-09-16] MEDS: PANTOPRAZOLE 40 MG TABLET PO (08:21)
[2022-09-16] MEDS: lisinopriL 10 MG TABLET PO (08:21)
--- NOTE | 2022-09-16 08:32 | WPDPN ---
Progress Note: A&P Assessment and Plan (1) Altered mental status: Code(s): R41.82 - Altered mental status, unspecified Status: Acute Assessment and Plan: Head CT was read as 1. No acute intracranial abnormality. 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, on 09/13 neurologist started on high-dose methylprednisone 1000mg TID for 3 days 2/3 thereafter 1mg/kg/day for 2 to 4 weeks, if no improvement patient need to be transferred to tertiary care, and will monitor, however today patient was seen by neurologist stated patient is doing better and can be discharged home, but due to the logistic issues patient was not able to leave and will monitor may discharge him tomorrow morning (2) Hypertension: Code(s): I10 - Essential (primary) hypertension Status: Acute Assessment and Plan: Continue lisinopril (3) Steroid long-term use: Status: Acute Assessment and Plan: Unsure if this is due to the sarcoid Subjective Date/time seen: 09/15/2022 Interval history: Head CT was read as 1. No acute intracranial abnormality. 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, on 09/13 neurologist started on high-dose methylprednisone 1000mg TID for 3 days 2/3 thereafter 1mg/kg/day for 2 to 4 weeks, if no improvement patient need to be transferred to tertiary care, and will monitor, however today patient was seen by neurologist stated patient is doing better and can be discharged home, but due to the logistic issues patient was not able to leave and will monitor may discharge him tomorrow morning Review of Systems Review of Systems: All systems reviewed & are unremarkable except as noted in HPI and below Exam Narrative: Patient is comfortable, NAD HEENT: eyes are clear and none icteric LUNGS: Normal respiratory efforts ABD: Not distended Lower extremities: no edema SKIN: nonjaundiced Neuro: grossly intact. Objective Data Vital Signs Vital Signs: Vital Signs - 24 hr 09/15/22 14:00 09/15/22 20:40 09/15/22 22:00 Temperature 98.4 F 98.1 F Pulse Rate 99 85 74 Respiratory Rate 16 20 Blood Pressure 152/87 H 142/74 H Pulse Oximetry 98 98 100 Oxygen Delivery Room Air Fraction of Inspired Oxygen 21 09/16/22 00:53 09/16/22 06:00 09/16/22 08:17 Temperature 98 F Pulse Rate 69 108 H Respiratory Rate 18 Blood Pressure 154/93 H Pulse Oximetry 98 100 94 Oxygen Delivery Room Air Room Air Fraction of Inspired Oxygen 21 Intake/Output Intake/Output: Intake & Output 09/13/22 09/14/22 09/15/22 09/16/22 23:59 23:59 23:59 23:59 Intake Total 1116 1576 1576 200 Output Total 500 400 Balance 616 1176 1576 200 Meds/Results Medications: Active Medications Generic Name Dose Route Start Last Admin Trade Name Freq PRN Reason Stop Dose Admin Acetaminophen 650 mg 09/11/22 15:29 Acetaminophen 325 Mg Tablet PO Q4H PRN Mild Pain (1-3) or Fever Hydrocodone Bitart/Acetaminophen 1 tab 09/11/22 15:29 Hydrocodone/Acetaminophen (*Crx) 5-325 Mg Tablet PO Q4H PRN Pain Rated 4-6 Albuterol 1 puff 09/12/22 00:17 09/12/22 23:52 Albuterol Sulfate
--- NOTE | 2022-09-16 12:03 | PM.DS ---
DS: Admitting Diagnosis Discharge Date 09/20/2022 Admitting Diagnosis Altered mental status DS: Discharge Diagnosis Discharge Diagnosis (1) Altered mental status: Code(s): R41.82 - Altered mental status, unspecified Status: Acute Assessment and Plan: Head CT was read as 1. No acute intracranial abnormality. 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, on 09/13 neurologist started on high-dose methylprednisone 1000mg TID for 3 days 2/3 thereafter 1mg/kg/day for 2 to 4 weeks, if no improvement patient need to be transferred to tertiary care, and will monitor, however today patient was seen by neurologist stated patient is doing better and can be discharged home, but due to the logistic issues patient was not able to leave and will monitor may discharge him tomorrow morning (2) Hypertension: Code(s): I10 - Essential (primary) hypertension Status: Acute Assessment and Plan: Continue lisinopril (3) Steroid long-term use: Status: Acute Assessment and Plan: Unsure if this is due to the sarcoid DS: Summary Hospital Course Reason for hospitalization: Altered mental status Narrative: This is a 52-year-old male patient who was taken to [facility] earlier this morning and was found to be altered and there was some concern that the patient may have been under the influence.? Patient was discharged from the hospital after being evaluated.? The patient was found wandering near the roadway and again confused.? 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 The patient is from [facility] and reports that he is here to visit his girlfriend.? However his girlfriend lives in [facility].? I spoke with his girlfriend and she stated that the patient is very confused.? The patient stated that his girlfriend and his child were with him today however the girlfriend tells me she and the patient's child were not with him today.? Patient is unsure about the events that occurred today.? The patient's toxicology screen was only positive for cannabis.? The patient denies using any other illicit drugs.? Head CT was read as no acute intracranial abnormality.? Chest x-ray was read as no acute cardiopulmonary disease.? The patient is being admitted to observation status on the date of service of Hospital Course: Patient with history of sarcoidosis presented with confusion and viusal problems,? 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 Time Spent with Patient Time attestation: Total time spent providing and/or coordinating discharge services: Exam Narrative: Patient is comfortable, NAD HEENT: eyes are clear and none icteric LUNGS: Normal respiratory efforts AB
[2022-09-16 13:45] VITALS: BP 155/86; PULSE 80; RESP 20; TEMP 37.5; O2SAT 100
[2022-09-16 15:57] LABS: Cryptococcus Antigen Not Detected (Not Detected); Cryptococcus Specimen Source CSF
[2022-09-16 23:43] LABS: Herpes Simplex Type 1 DNA PCR Not Detected (Not Detected); Herpes Simplex Type 2 DNA PCR Not Detected (Not Detected)
[2022-09-17 12:34] LABS: VDRL Quantitative CSF Nonreactive (Nonreactive)
[2022-09-17 14:31] LABS: Epstein Barr Virus DNA PCR Not Detected (Not Detected); Source Epstein Barr Virus CSF
[2022-09-22 07:38] LABS: Lyme AB IgG, Immunoblot Not Detected; Lyme AB IgM, Immunoblot Not Detected
== END 2022-09-16 14:18 | disposition home or self-care (01) | DRG 861 ==
LOC: ANHED 15:25 → ANH3MEDSUR 16:59
PROVIDERS: Nurse Practitioner; Student in an Organized Health Care Education/Training Program; Admitting Provider Student in an Organized Health Care Education/Training Program; Emergency Provider Emergency Medicine; Visit Provider Family Medicine
DX: R41.82 Altered mental status, unspecified (principal); D86.89 Sarcoidosis of other sites; G51.0 Bell's palsy; I10 Essential (primary) hypertension; Z79.52 Long term (current) use of systemic steroids
CPT/HCPCS: 36415; 62328; 70450; 70553; 71046; 80048; 80053; 80307; 81003; 82140; 82164; 82945; 83605; 83735; 84157; 84443; 85025; 85027; 85610; 85730; 86403; 86592; 86617; 87070; 87102; 87206; 87529; 87798; 88108; 89051; 93005; 93306; 94640; 96365; 99285; A9270; A9577; G0378; G0379; J2930; J7512; J8540